=== PATIENT | female | born 1985 | race Caucasian/White ===

== ENCOUNTER 2024-03-12 02:37 | Inpatient (IN) | payer MEDICAID ==
[~2024-03-12] VITALS: Ht 157.5 cm; Wt 100.0 kg
[2024-03-12 03:09] LABS: BASOPHILS % (AUTO) 0.3 % (0.0-2.0); EOSINOPHILS % (AUTO) 0.2 % (1.0-6.0); HEMATOCRIT 42.8 % (36-46); HEMOGLOBIN 14.5 g/dL (12.0-16.0); LYMPHOCYTES # (AUTO) 1.7 K/uL (1.0-4.8); LYMPHOCYTES % (AUTO) 11.6 % (22.0-44.0); MEAN CORPUSCULAR HEMOGLOBIN 33.4 pg (26.0-34.0); MEAN CORPUSCULAR HGB CONC 33.9 G/dL (31.0-37.0); MEAN CORPUSCULAR VOLUME 99 fL (80-100); MONOCYTES # (AUTO) 0.8 K/uL (0.1-1.0); NEUTROPHILS # (AUTO) 12.4 K/uL (1.8-7.7); NEUTROPHILS % (AUTO) 82.9 % (40.0-70.0); PLATELET COUNT (AUTO) 310 K/uL (150-450); RED BLOOD CELL COUNT(AUTO) 4.34 MIL/uL (4.00-5.20); RED CELL DISTRIBUTION WIDTH 12.9 % (11.5-14.5)
[2024-03-12 03:17] LABS: ANION GAP 13 mmol/L (8-16); CARBON DIOXIDE 27 mmol/L (22-29); CHLORIDE 97 mmol/L (98-107); CREATININE 1.01 mg/dL (0.60-1.30); GLOMERULAR FILTR. RATE CALC > 60 mL/min (>60); GLUCOSE,RANDOM 274 mg/dL (70-110); POTASSIUM 4.6 mmol/L (3.5-5.1); SODIUM SERUM 137 mmol/L (136-145); UREA NITROGEN, BLOOD 11 mg/dL (7-18)
[2024-03-12] MEDS: ONDANSETRON HCL 4 MG/2 ML VIAL IVP ONE ×2 (03:21→05:50)
[2024-03-12] MEDS: KETOROLAC TROMETHAMINE 30 MG/ML VIAL IVP ONE (03:22)
[2024-03-12 03:28] LABS: ALANINE AMINOTRANSFERASE 88 U/L (12-78); ALBUMIN 4.2 g/dL (3.4-5.0); ALKALINE PHOSPHATASE 110 U/L (46-116); ASPARTATE AMINOTRANSFERASE 161 U/L (15-37); BILIRUBIN,TOTAL 1.4 mg/dL (0.1-1.0); HCG,QUANTITATIVE < 1 mIU/mL (0-6); LIPASE 28 U/L (16-77); TOTAL PROTEIN, SERUM 8.3 g/dL (6.4-8.2)
[2024-03-12 06:32] LABS: APPEARANCE,URINE CLEAR (CLEAR); COLOR,URINE YELLOW (YELLOW); GLUCOSE, URINE (UA) >=1000 mg/dL (NEGATIVE); KETONES,URINE 40-60 mg/dL (NEGATIVE); LEUKOCYTE ESTERASE ,URINE NEGATIVE (NEGATIVE); NITRATE,URINE NEGATIVE (NEGATIVE); OCCULT BLOOD,URINE NEGATIVE (NEGATIVE); PH,URINE 6.5 (5.0-8.0); PROTEIN,URINE 100-200,SEE CONFIRM mg/dL (NEGATIVE); SPECIFIC GRAVITIY, URINE 1.036 (1.003-1.030); UROBILINOGEN,URINE <=1.0 mg/dL (<=1.0)
[2024-03-12] MEDS: PIPERACILLIN/TAZO 3.375 GM/D5W 50 ML IV ONE (06:35)
[2024-03-12 07:07] LABS: BILIRUBIN,URINE SMALL (NEGATIVE)
[2024-03-12] MEDS ORDERED: ACETAMINOPHEN 325 MG TABLET PO PRN (07:30)
[2024-03-12] MEDS: DOCUSATE SODIUM 100 MG CAPSULE PO SCH (08:07)
[2024-03-12] MEDS: PANTOPRAZOLE SODIUM 40 MG/VIAL IVP SCH (08:07)
[2024-03-12] MEDS: SODIUM CHLORIDE 0.9% 1,000 ML IV ONE (08:07)
[2024-03-12] MEDS ORDERED: DEXTROSE 50%-WATER 25 GM/50 ML SYRINGE IVP PRN (08:15)
[2024-03-12 08:45] LABS: BACTERIA,URINE None Seen /HPF (None Seen); RBC,URINE None Seen /HPF (0-2); SQUAMOUS EPITHELIAL CELL,UR Few /LPF (None Seen); SULFOSALICYLIC ACID,URINE 2+ (Negative); WBC,URINE None Seen /HPF (0-5)
[2024-03-12] MEDS: ONDANSETRON HCL 4 MG/2 ML VIAL IVP PRN (10:13)
[2024-03-12] MEDS ORDERED: KETOROLAC TROMETHAMINE 60 MG/2 ML VIAL IM ONE (12:00)
[2024-03-12] MEDS ORDERED: FentaNYL CITRATE PF 100 MCG/2 ML VIAL IVP ONE (12:00)
[2024-03-12] MEDS ORDERED: SUGAMMADEX SODIUM 200 MG/2 ML VIAL IVP ONE (12:00)
[2024-03-12] MEDS ORDERED: ONDANSETRON HCL 4 MG/2 ML VIAL IVP ONE (12:00)
[2024-03-12] MEDS ORDERED: HydrALAZINE HCL 20 MG/ML VIAL IVP ONE (12:00)
[2024-03-12] MEDS ORDERED: MIDAZOLAM HCL 2 MG/2 ML VIAL IVP ONE (12:00)
[2024-03-12] MEDS ORDERED: LIDOCAINE/PF 2% 5 ML SYRINGE IVP ONE (12:00)
[2024-03-12] MEDS ORDERED: PROPOFOL 1% 20 ML VIAL IVP ONE (12:00)
[2024-03-12] MEDS ORDERED: ROCURONIUM BROMIDE 10 MG/ML 5 ML VIAL IVP ONE (12:00)
[2024-03-12] MEDS ORDERED: DEXAMETHASONE SOD PHOS 4 MG/ML VIAL IVP ONE (12:00)
[2024-03-12] MEDS: PIPERACILLIN/TAZO 3.375 GM/D5W 50 ML IV SCH (13:23)
[2024-03-12 14:36] LABS: GLUCOMETER DEV NAME(LOC) ER.7; GLUCOSE,POINT OF CARE 136 MG/DL (70-110)
[2024-03-12] MEDS ORDERED: SODIUM CHLORIDE 0.9% 500 ML IV ONE (16:03)
[2024-03-12 16:58] VITALS: BP 118/75; PULSE 87; RESP 20; TEMP 98; O2SAT 98
[2024-03-12] MEDS ORDERED: SODIUM CHLORIDE 0.9% 1,000 ML ONE (17:27)
[2024-03-12] MEDS ORDERED: IOHEXOL 240 MG/ML 20 ML VIAL ONE (17:50)
[2024-03-12] MEDS ORDERED: FentaNYL CITRATE PF 100 MCG/2 ML VIAL IVP PRN (18:30)
[2024-03-12] MEDS ORDERED: RINGERS SOLUTION,LACTATED 1,000 ML IV ONE (18:35)
[2024-03-12] MEDS: BUPIVACAINE 0.25%/EPI 1:200,000/PF 30 ML VIAL ONE (18:50)
[2024-03-12] MEDS ORDERED: HYDROmorphone HCL 2 MG/ML SYRINGE ONE (19:27)
[2024-03-12] MEDS: HYDROmorphone HCL 2 MG/ML SYRINGE IVP PRN (19:30)
[2024-03-12] MEDS: OXYGEN THERAPY IH SCH (20:00)
[2024-03-12 20:41] VITALS: BP 137/85; PULSE 108; RESP 18; TEMP 98.5; O2SAT 95
[2024-03-12] MEDS: INSULIN LISPRO 100 UNITS/ML SQ PRN (20:49)
[2024-03-12] MEDS: MORPHINE SULFATE 2 MG/ML SYRINGE IVP PRN (22:44)
[2024-03-13] MEDS ORDERED: SODIUM CHLORIDE 0.9% 500 ML IV ONE (03:53)
[2024-03-13 04:09] VITALS: BP 129/86; PULSE 88; RESP 18; TEMP 98.1; O2SAT 98
[2024-03-13 06:36] LABS: BASOPHILS % (AUTO) 0.2 % (0.0-2.0); EOSINOPHILS % (AUTO) 0 % (1.0-6.0); HEMATOCRIT 35.8 % (36-46); LYMPHOCYTES # (AUTO) 1.1 K/uL (1.0-4.8); LYMPHOCYTES % (AUTO) 11.2 % (22.0-44.0); MEAN CORPUSCULAR HEMOGLOBIN 33.4 pg (26.0-34.0); MEAN CORPUSCULAR HGB CONC 33.5 G/dL (31.0-37.0); MEAN CORPUSCULAR VOLUME 100 fL (80-100); MONOCYTES # (AUTO) 0.3 K/uL (0.1-1.0); MONOCYTES % (AUTO) 2.9 % (2.0-9.0); NEUTROPHILS # (AUTO) 8.3 K/uL (1.8-7.7); PLATELET COUNT (AUTO) 247 K/uL (150-450); RED BLOOD CELL COUNT(AUTO) 3.59 MIL/uL (4.00-5.20); RED CELL DISTRIBUTION WIDTH 13.1 % (11.5-14.5); WHITE BLOOD COUNT (AUTO) 9.6 K/uL (4.5-11.0)
[2024-03-13 07:01] LABS: ALANINE AMINOTRANSFERASE 536 U/L (12-78); ALBUMIN 3.1 g/dL (3.4-5.0); ALKALINE PHOSPHATASE 104 U/L (46-116); ANION GAP 9 mmol/L (8-16); ASPARTATE AMINOTRANSFERASE 457 U/L (15-37); BILIRUBIN,TOTAL 1.1 mg/dL (0.1-1.0); CALCIUM, TOTAL 8.5 mg/dL (8.8-10.5); CARBON DIOXIDE 25 mmol/L (22-29); CHLORIDE 102 mmol/L (98-107); CREATININE 0.81 mg/dL (0.60-1.30); GLOMERULAR FILTR. RATE CALC > 60 mL/min (>60); GLUCOSE,RANDOM 229 mg/dL (70-110); SODIUM SERUM 136 mmol/L (136-145); TOTAL PROTEIN, SERUM 6.7 g/dL (6.4-8.2); UREA NITROGEN, BLOOD 7 mg/dL (7-18)
[2024-03-13 07:18] LABS: NEUTROPHILS % (AUTO) 85.7 % (40.0-70.0)
[2024-03-13 08:16] LABS: GLUCOMETER DEV NAME(LOC) 6S.2; GLUCOSE,POINT OF CARE 206 MG/DL (70-110)
[2024-03-13 08:58] VITALS: BP 132/83; PULSE 98; RESP 18; TEMP 98.1; O2SAT 96
[2024-03-13 11:56] LABS: GLUCOMETER DEV NAME(LOC) 6N.2B; GLUCOSE,POINT OF CARE 276 MG/DL (70-110)
[2024-03-13 15:40] VITALS: BP 128/79; PULSE 93; RESP 19; TEMP 98.4; O2SAT 96
[2024-03-13] MEDS: CETIRIZINE HCL 10 MG TABLET PO SCH (16:36)
[2024-03-13 18:50] LABS: GLUCOMETER DEV NAME(LOC) 6S.2; GLUCOSE,POINT OF CARE 138 MG/DL (70-110)
[2024-03-13 18:50] LABS: GLUCOMETER DEV NAME(LOC) 6S.2; GLUCOSE,POINT OF CARE 186 MG/DL (70-110)
[2024-03-13 20:35] VITALS: BP 127/75; PULSE 97; RESP 20; TEMP 97.9; O2SAT 94
[2024-03-13] MEDS: PB/HYOSCY/ATR/SCOP/LIDO/MAALOX 55 ML BOTTLE PO ONE (22:12)
[2024-03-13] MEDS: FLUCONAZOLE 150 MG TABLET PO ONE (22:12)
[2024-03-14 03:26] LABS: GLUCOMETER DEV NAME(LOC) 4E.2; GLUCOSE,POINT OF CARE 236 MG/DL (70-110)
[2024-03-14 04:20] VITALS: BP 113/73; PULSE 91; RESP 18; TEMP 98.3; O2SAT 94
[2024-03-14 07:40] LABS: GLUCOMETER DEV NAME(LOC) 4E.2; GLUCOSE,POINT OF CARE 218 MG/DL (70-110)
[2024-03-14 09:14] VITALS: BP 105/71; PULSE 58; RESP 18; TEMP 98.3; O2SAT 97
[2024-03-14] MEDS: MetFORMIN HCL 500 MG TABLET PO SCH (09:21)
[2024-03-14 10:43] LABS: ALANINE AMINOTRANSFERASE 1157 U/L (12-78); ALBUMIN 3.2 g/dL (3.4-5.0); ALKALINE PHOSPHATASE 191 U/L (46-116); ANION GAP 9 mmol/L (8-16); BILIRUBIN,TOTAL 2.7 mg/dL (0.1-1.0); CALCIUM, TOTAL 8.4 mg/dL (8.8-10.5); CARBON DIOXIDE 25 mmol/L (22-29); CHLORIDE 102 mmol/L (98-107); CREATININE 0.84 mg/dL (0.60-1.30); GLOMERULAR FILTR. RATE CALC > 60 mL/min (>60); GLUCOSE,RANDOM 175 mg/dL (70-110); POTASSIUM 3.4 mmol/L (3.5-5.1); SODIUM SERUM 136 mmol/L (136-145); UREA NITROGEN, BLOOD 9 mg/dL (7-18)
[2024-03-14 10:52] LABS: ASPARTATE AMINOTRANSFERASE 1461 U/L (15-37)
[2024-03-14 12:00] LABS: GLUCOMETER DEV NAME(LOC) 6S.2; GLUCOSE,POINT OF CARE 151 MG/DL (70-110)
[2024-03-14] MEDS ORDERED: POTASSIUM CHL 10 MEQ/WATER 50 ML IV PRN (14:45)
[2024-03-14] MEDS: POTASSIUM CHLORIDE 20 MEQ ER TABLET PO PRN (16:13)
[2024-03-14 16:47] VITALS: BP 150/97; PULSE 92; RESP 18; TEMP 98.1; O2SAT 97
[2024-03-14 19:08] LABS: GLUCOMETER DEV NAME(LOC) 6N.2B; GLUCOSE,POINT OF CARE 203 MG/DL (70-110)
[2024-03-14 19:20] VITALS: BP 119/66; PULSE 83; RESP 18; TEMP 98.9; O2SAT 99
[2024-03-15 04:00] VITALS: BP 122/69; PULSE 84; RESP 18; TEMP 98.6; O2SAT 93
[2024-03-15] MEDS: TraMADol HCL 50 MG TABLET PO ONE (05:18)
[2024-03-15 06:10] LABS: GLUCOMETER DEV NAME(LOC) 6N.2B; GLUCOSE,POINT OF CARE 153 MG/DL (70-110)
[2024-03-15 08:36] LABS: ALANINE AMINOTRANSFERASE 1018 U/L (12-78); ALKALINE PHOSPHATASE 203 U/L (46-116); ANION GAP 10 mmol/L (8-16); ASPARTATE AMINOTRANSFERASE 668 U/L (15-37); BILIRUBIN,TOTAL 4.1 mg/dL (0.1-1.0); CALCIUM, TOTAL 8.6 mg/dL (8.8-10.5); CARBON DIOXIDE 28 mmol/L (22-29); CHLORIDE 102 mmol/L (98-107); CREATININE 0.62 mg/dL (0.60-1.30); GLOMERULAR FILTR. RATE CALC > 60 mL/min (>60); GLUCOSE,RANDOM 181 mg/dL (70-110); POTASSIUM 3.8 mmol/L (3.5-5.1); SODIUM SERUM 140 mmol/L (136-145); TOTAL PROTEIN, SERUM 6.4 g/dL (6.4-8.2); UREA NITROGEN, BLOOD 4 mg/dL (7-18)
[2024-03-15 09:31] VITALS: BP 171/74; PULSE 79; RESP 18; TEMP 98.9; O2SAT 98
[2024-03-15] MEDS: HYDROmorphone HCL 2 MG/ML SYRINGE IVP PRN (10:55)
[2024-03-15] MEDS: METOCLOPRAMIDE HCL 5 MG/ML 2 ML VIAL IVP ONE (14:35)
[2024-03-15 19:25] VITALS: BP 110/55; PULSE 93; RESP 18; TEMP 98.1; O2SAT 99
[2024-03-15 21:45] LABS: GLUCOMETER DEV NAME(LOC) 6S.2; GLUCOSE,POINT OF CARE 146 MG/DL (70-110)
[2024-03-15 21:46] LABS: GLUCOMETER DEV NAME(LOC) 6S.2; GLUCOSE,POINT OF CARE 223 MG/DL (70-110)
[2024-03-15 23:55] LABS: GLUCOMETER DEV NAME(LOC) 4E.2; GLUCOSE,POINT OF CARE 205 MG/DL (70-110)
[2024-03-16 05:26] VITALS: BP 116/66; PULSE 83; RESP 18; TEMP 98.1; O2SAT 97
[2024-03-16 08:01] LABS: GLUCOMETER DEV NAME(LOC) 6N.2B; GLUCOSE,POINT OF CARE 165 MG/DL (70-110)
[2024-03-16 08:01] LABS: ALANINE AMINOTRANSFERASE 675 U/L (12-78); ALBUMIN 2.9 g/dL (3.4-5.0); ALKALINE PHOSPHATASE 205 U/L (46-116); ANION GAP 6 mmol/L (8-16); ASPARTATE AMINOTRANSFERASE 175 U/L (15-37); BILIRUBIN,TOTAL 1.2 mg/dL (0.1-1.0); CALCIUM, TOTAL 8.6 mg/dL (8.8-10.5); CARBON DIOXIDE 28 mmol/L (22-29); CHLORIDE 103 mmol/L (98-107); CREATININE 0.59 mg/dL (0.60-1.30); GLOMERULAR FILTR. RATE CALC > 60 mL/min (>60); GLUCOSE,RANDOM 169 mg/dL (70-110); POTASSIUM 3.6 mmol/L (3.5-5.1); SODIUM SERUM 137 mmol/L (136-145); TOTAL PROTEIN, SERUM 6.6 g/dL (6.4-8.2); UREA NITROGEN, BLOOD 4 mg/dL (7-18)
[2024-03-16 08:26] VITALS: BP 106/57; PULSE 78; RESP 19; TEMP 97.8; O2SAT 99
[2024-03-16] MEDS: SODIUM CHLORIDE 0.9% 1,000 ML IV ONE (13:00)
[2024-03-16 15:31] VITALS: BP 101/52; PULSE 82; RESP 19; TEMP 98.1; O2SAT 98
[2024-03-16 19:38] VITALS: BP 100/54; PULSE 86; RESP 20; TEMP 99; O2SAT 98
[2024-03-16 21:01] LABS: GLUCOMETER DEV NAME(LOC) 6N.2B; GLUCOSE,POINT OF CARE 153 MG/DL (70-110)
[2024-03-16 21:06] LABS: GLUCOMETER DEV NAME(LOC) 4E.2; GLUCOSE,POINT OF CARE 146 MG/DL (70-110)
[2024-03-17 04:55] VITALS: BP 107/54; PULSE 54; RESP 20; TEMP 98.1; O2SAT 95
[2024-03-17 05:26] LABS: GLUCOMETER DEV NAME(LOC) 6S.2; GLUCOSE,POINT OF CARE 257 MG/DL (70-110)
[2024-03-17 06:56] LABS: GLUCOMETER DEV NAME(LOC) 4E.2; GLUCOSE,POINT OF CARE 145 MG/DL (70-110)
[2024-03-17 07:26] LABS: BASOPHILS % (AUTO) 0.6 % (0.0-2.0); EOSINOPHILS % (AUTO) 1.9 % (1.0-6.0); HEMATOCRIT 36.9 % (36-46); HEMOGLOBIN 12.3 g/dL (12.0-16.0); LYMPHOCYTES # (AUTO) 2.7 K/uL (1.0-4.8); LYMPHOCYTES % (AUTO) 27.6 % (22.0-44.0); MEAN CORPUSCULAR HEMOGLOBIN 33.4 pg (26.0-34.0); MEAN CORPUSCULAR HGB CONC 33.4 G/dL (31.0-37.0); MEAN CORPUSCULAR VOLUME 100 fL (80-100); MONOCYTES # (AUTO) 0.7 K/uL (0.1-1.0); MONOCYTES % (AUTO) 6.7 % (2.0-9.0); NEUTROPHILS # (AUTO) 6.2 K/uL (1.8-7.7); NEUTROPHILS % (AUTO) 63.2 % (40.0-70.0); PLATELET COUNT (AUTO) 192 K/uL (150-450); RED CELL DISTRIBUTION WIDTH 13.1 % (11.5-14.5); WHITE BLOOD COUNT (AUTO) 9.8 K/uL (4.5-11.0)
[2024-03-17 07:32] VITALS: BP 126/75; PULSE 83; RESP 18; TEMP 98.2
[2024-03-17 07:40] LABS: ALANINE AMINOTRANSFERASE 465 U/L (12-78); ALBUMIN 2.9 g/dL (3.4-5.0); ALKALINE PHOSPHATASE 183 U/L (46-116); ANION GAP 7 mmol/L (8-16); ASPARTATE AMINOTRANSFERASE 86 U/L (15-37); BILIRUBIN,TOTAL 0.9 mg/dL (0.1-1.0); CARBON DIOXIDE 26 mmol/L (22-29); CHLORIDE 103 mmol/L (98-107); CREATININE 0.64 mg/dL (0.60-1.30); GLOMERULAR FILTR. RATE CALC > 60 mL/min (>60); GLUCOSE,RANDOM 155 mg/dL (70-110); POTASSIUM 3.7 mmol/L (3.5-5.1); SODIUM SERUM 136 mmol/L (136-145); TOTAL PROTEIN, SERUM 6.5 g/dL (6.4-8.2); UREA NITROGEN, BLOOD 6 mg/dL (7-18)
== END 2024-03-17 09:40 | disposition home or self-care (01) | DRG 263 ==
LOC: EMS 02:37 → EDH 07:42 → 6S 15:40
PROVIDERS: ADMIT Internal Medicine; ATTEND Internal Medicine
PROC: 0FT44ZZ Resection of Gallbladder, Percutaneous Endoscopic Approach (ICD-10-PCS; principal; 2024-03-12 17:00)
DX: K80.62 Calculus of gallbladder and bile duct with acute cholecystitis without obstruction (principal); E11.9 Type 2 diabetes mellitus without complications; N30.00 Acute cystitis without hematuria; E66.01 Morbid (severe) obesity due to excess calories; Z68.41 Body mass index [BMI] 40.0-44.9, adult
CPT/HCPCS: 74181; 76705; 80048; 80053; 80076; 81001; 81002; 82962; 83036; 83690; 84132; 84702; 85025; 87040; 87081; 88304; 93005; 99285; C9113; J0360; J1100; J1170; J1885; J2250; J2270; J2405; J2543; J2704; J2765; J3010; J3490; J7030; J7040; J7120; Q9966; Q9967